=== PATIENT | male | born 2000 | race Caucasian/White ===

== ENCOUNTER 2019-05-21 10:12 | Emergency (ER) | payer SELFPAY ==
[2019-05-21] MEDS: FLUORESCEIN STRIP LEFT EYE (11:59)
[2019-05-21] MEDS: TETRACAINE 0.5% 4 ML OPH BOTH EYES (11:59)
== END 2019-05-21 12:33 | disposition home or self-care (01) ==
LOC: FTE 10:12
DX: H16.002 Unspecified corneal ulcer, left eye (principal)
CPT/HCPCS: 99283